=== PATIENT | female | born 1955 | race Caucasian/White ===

== ENCOUNTER 2019-05-04 09:00 | Outpatient (CLI) | payer MEDICARE, SELFPAY ==
--- NOTE | 2019-05-04 09:58 | MR_ITS ---
WS: [id number] MRI BRAIN WITH HIGH-RESOLUTION IMAGING THROUGH THE INTERNAL AUDITORY CANALS WITHOUT AND WITH CONTRAST HISTORY: SENSORINEURAL HEARING LOSS BILATERAL/ TINNITUS BILATERAL COMPARISON: None available. TECHNIQUE: Multiplanar, multisequence imaging is performed through the brain. Additional 3 mm imaging performed in multiple planes through the internal auditory canal. Postcontrast imaging with 17 ml's of Prohance. No acute intracranial hemorrhage, midline shift, edema or mass effect. There are a few scattered T2 and FLAIR signal hyperintensities within the white matter. Appropriate f or the patient's age and related to microvascular disease. No prior infarct. No hemorrhage or mass ef fect. Posterior fossa is negative. Ventricles and extra-axial spaces are normal. No inferior displacement of cerebellar tonsils. Clivus and pituitary gland are normal. Internal and external auditory canals: Unremarkable. Cranial nerves VII and VIII complexes: Unremarkable. No enhancement or mass. Cerebellopontine angles: Normal. Paranasal sinuses: Normal. Mastoid air cells: Normal. Calvarium and scalp: Normal. Visualized [place] and dural venous sinuses demonstrate no abnormality. MR/MR iac's wo/w con* [id number] IMPRESSION: 1. Normal MRI internal auditory canals. No mass. 2. Minimal chronic microvascular ischemic disease.
[2019-05-04 11:10] LABS: Blood Urea Nitrogen 12 mg/dL (8-23)
== END 2019-05-04 09:01 | disposition home or self-care (01) ==
PROVIDERS: Family Provider Family Medicine; PCP Family Medicine; Visit Provider Specialist
DX: H90.3 Sensorineural hearing loss, bilateral (principal); H93.13 Tinnitus, bilateral; R42 Dizziness and giddiness
CPT/HCPCS: 70553; 82565; 84520; A9579

== ENCOUNTER 2019-06-15 10:26 | Outpatient (RCR) | payer MEDICARE, SELFPAY | END 2019-07-05 23:59 | disposition home or self-care (01) | LOC: SPT 10:26 | PROVIDERS: Family Provider Family Medicine; PCP Family Medicine; Referring Provider Specialist; Visit Provider Specialist | DX: R42 Dizziness and giddiness (principal) | CPT/HCPCS: 95992; 97162 ==

== ENCOUNTER 2020-01-03 15:36 | Outpatient (CLI) | payer MEDICARE, SELFPAY ==
--- NOTE | 2020-01-03 15:54 | XR_ITS ---
WS: [id number] SCREENING DEXA SCAN [facility] CLINICAL INFORMATION: ASYMTOMATIC MENOPAUSAL STATE COMPARISON: None. FINDINGS: The L1-L4 bone mineral density measures 1.104 g/cm2. This corresponds to a T score score of -0.6 and Z score of 0.5. Left femoral neck bone mineral density measures 0.893 g/cm2. This corresponds to a T score of -0.9 an d Z score of 0.0. Right femoral neck bone mineral density measures 0.943 g/cm2. This corresponds to a T score -0.5of an d Z score of 0.4. Mean femoral neck bone mineral density measures 0.918 g/cm2. This corresponds to a T score of -0.7 an d Z score of 0.2. XR/XR DEXA axial skeleton* [id number] IMPRESSION: Normal bone mineralization. Patient's FRAX calculated 10 year probability for major osteoporotic fracture i s 14.9 % and osteoporotic hip fracture is 1.8%.
== END 2020-01-03 15:37 | disposition home or self-care (01) ==
LOC: RADWPI 15:46
PROVIDERS: Family Provider Family Medicine; PCP Family Medicine; Visit Provider Family Medicine
DX: Z78.0 Asymptomatic menopausal state (principal)
CPT/HCPCS: 77080

== ENCOUNTER 2020-05-28 14:02 | Outpatient (CLI) | payer MEDICARE, SELFPAY ==
--- NOTE | 2020-05-28 14:08 | MM_ITS ---
WS: [id number] BILATERAL DIGITAL SCREENING MAMMOGRAPHY WITH CAD CLINICAL INFORMATION: SCREENING HISTORY: Screening mammogram. No current complaints. COMPARISON: March 16, 2019 TECHNIQUE: Bilateral CC and MLO views. FINDINGS: Scattered fibroglandular densities bilaterally. No suspicious focal mass, asymmetry, calcifications, or architectural distortion. No evidence of malignancy. Punctate and vascular calcifications. MM/[place] [id number] IMPRESSION: BI-RADS: 2-Benign FOLLOW UP: 1 Year Follow-up Recommend return to annual screening mammography.
== END 2020-05-28 14:03 | disposition home or self-care (01) ==
LOC: RADSHAW 14:05
PROVIDERS: PCP Family Medicine; Visit Provider Family Medicine
DX: Z12.31 Encounter for screening mammogram for malignant neoplasm of breast (principal)
CPT/HCPCS: 77067

== ENCOUNTER → 2020-11-10 11:47 | Outpatient (BNVA) | payer MEDICARE, SELFPAY | PROVIDERS: PCP Family Medicine; Visit Provider Registered Nurse Neonatal Intensive Care | DX: N39.0 Urinary tract infection, site not specified (principal) | CPT/HCPCS: 81000 ==

== ENCOUNTER 2021-08-19 10:36 | Outpatient (CLI) | payer MEDICARE, SELFPAY ==
--- NOTE | 2021-08-19 10:44 | MM_ITS ---
WS: [id number] BILATERAL SCREENING DIGITAL BREAST TOMOSYNTHESIS MAMMOGRAM WITH CAD HISTORY: SCREENING COMPARISON: 05/28/2020 and 03/16/2019 Bilateral CC and MLO views with tomosynthesis and synthetic mammography submitted. Computer aided det ection analyzed. Breast composition: There are scattered areas of fibroglandular density. No suspicious masses, microc alcifications or architectural distortion. Bilateral calcifications in each breast are stable. MM/[place] [id number] IMPRESSION: BI-RADS: 2-Benign FOLLOW UP: 1 Year Follow-up
== END 2021-08-19 10:37 | disposition home or self-care (01) ==
LOC: RAD 10:39
PROVIDERS: PCP Family Medicine; Visit Provider Family Medicine
DX: Z12.31 Encounter for screening mammogram for malignant neoplasm of breast (principal)
CPT/HCPCS: 77063; 77067

== ENCOUNTER 2022-03-18 12:24 | Outpatient (CLI) | payer MEDICARE, SELFPAY ==
--- NOTE | 2022-03-18 12:46 | XR_ITS ---
WS: [id number] DEXA (DUAL ENERGY X-RAY ABSORPTIOMETRY) Bone mineral density was performed using a SingleFeed machine. HISTORY: ASYMPTOMATIC MENOPAUSAL STATE COMPARISON: 01/03/2020 Lumbar spine BMD (L1-L4): 1.144 g/cm2 T score: -0.3 Z score: 0.9 Total hip BMD: Left: 0.687 g/cm2. T score: -2.5 Z score: -1.5 Right: 0.736 g/cm2. T score: -2.2 Z score: -1.1 10 year probability of a major osteoporotic fracture is 25.5%. Compared to the prior study from 01/03/2020. Lumbar spine bone mineral density has increased by 3.6%. Bilateral hips bone mineral density has not changed. XR/XR DEXA axial skeleton* [id number] IMPRESSION: OSTEOPOROSIS based upon the WHO classification for females. Significant increase in bone mineral density within the lumbar spine since the prior study.
== END 2022-03-18 12:25 | disposition home or self-care (01) ==
PROVIDERS: PCP Family Medicine; Visit Provider Family Medicine
DX: Z78.0 Asymptomatic menopausal state (principal); M81.0 Age-related osteoporosis without current pathological fracture
CPT/HCPCS: 77080

== ENCOUNTER 2022-09-29 08:12 | Outpatient (CLI) | payer MEDICARE, SELFPAY ==
--- NOTE | 2022-09-29 08:22 | MM_ITS ---
WS: [id number] BILATERAL SCREENING DIGITAL TOMOSYNTHESIS MAMMOGRAM WITH CAD HISTORY: SCREENING COMPARISON: 08/19/2021 and 05/28/2020 Bilateral CC and MLO views with tomosynthesis and synthetic mammography submitted. Computer aided det ection analyzed. Breast composition: There are scattered areas of fibroglandular density. No suspicious masses, microc alcifications or architectural distortion. Benign calcifications. MM/[place] [id number] IMPRESSION: BI-RADS: 2-Benign FOLLOW UP: 1 Year Follow-up
== END 2022-09-29 08:13 | disposition home or self-care (01) ==
PROVIDERS: PCP Family Medicine; Visit Provider Family Medicine
DX: Z12.31 Encounter for screening mammogram for malignant neoplasm of breast (principal)
CPT/HCPCS: 77063; 77067

== ENCOUNTER 2023-07-12 11:51 | Emergency (ER) | payer MEDICARE, SELFPAY ==
[2023-07-12 11:51] VITALS: BP 129/75; PULSE 56; RESP 18; TEMP 36.8; O2SAT 100; BMI 30.9
--- NOTE | 2023-07-12 11:58 | XRR_ITS ---
PROCEDURE INFORMATION: Exam: XR Left Foot Exam date and time: 07/12/2023 12:02 PM Age: 67 years old Clinical indication: Injury or trauma; Other: Twisted lt foot and ankle; Sprain or strain; Left TECHNIQUE: Imaging protocol: Radiologic exam of the left foot. Views: 3 or more views. COMPARISON: CR XR ankle LT min 3V* [id number] 07/12/2023 12:02 PM FINDINGS: Bones/joints: Nondisplaced 5th metatarsal base fracture (zone 2 Springer fracture) best seen on the lateral view. No dislocation. Mild degenerative change 1st metatarsal phalangeal joint. Mild bunion formation. Small plantar calcaneal enthesophyte. Soft tissues: No significant soft tissue pathology. XR/XR foot LT min 3V* [id number] IMPRESSION: Nondisplaced 5th metatarsal base fracture.
--- NOTE | 2023-07-12 11:58 | XRR_ITS ---
PROCEDURE INFORMATION: Exam: XR Left Ankle Exam date and time: 07/12/2023 12:02 PM Age: 67 years old Clinical indication: Injury or trauma; Other: Twisted lt foot and ankle Thursday; Sprain or strain; Left TECHNIQUE: Imaging protocol: Radiologic exam of the left ankle. Views: 3 or more views. COMPARISON: CR XR foot LT min 3V* [id number] 07/12/2023 12:02 PM FINDINGS: Bones/joints: Small plantar calcaneal enthesophyte. Nondisplaced fracture of the base of the 5th metatarsal. No dislocation. Soft tissues: No significant soft tissue pathology. XR/XR ankle LT min 3V* [id number] IMPRESSION: Nondisplaced 5th metatarsal base fracture.
--- NOTE | 2023-07-12 12:04 | ED_ITS ---
HPI - Extremity Problem General: Chief complaint: Extremity Injury, Lower Stated complaint: left foot pains Time Seen by Provider: 07/12/23 11:58 Source: patient Mode of arrival: ambulatory Limitations: no limitations History of Present Illness: 67-year-old female states she rolled her ankle on Thursday. States she has had a fracture to her fifth metatarsal of past states she has had pain throughout the week and is very tender over that fifth metatarsal. She has been walking on it she is a [place] shoe she states the pain is worse with movement though. Associated symptoms: Deny chest pain, fever(s) or rash Review of Systems Const: Denies: fever(s) or chills ENMT: Denies: throat pain or dental pain Card: Denies: chest pain Resp: Denies: dyspnea GI: Denies: abdominal pain, nausea, vomiting or diarrhea Musc: Reports: extremity pain; Denies: neck pain or back pain Skin/Breast: Denies: rash Neuro: Denies: headache(s) PFSH ED PFSH: Social History Smoking and tobacco/nicotine status: former use of tobacco/nicotine Physical Exam Const: COMMON NORMALS: no acute distress, patient oriented x3 and healthy appearing HENMT: COMMON NORMALS: normocephalic and atraumatic HEAD & SCALP: normocephalic and atraumatic Eye: COMMON NORMALS: conjunctivae normal CONJUNCTIVA: Yes conjunctivae normal Chest: COMMONS NORMALS: normal inspection of the chest Resp: COMMON NORMALS: normal respiratory effort Cardio: COMMON NORMALS: regular rate RATE: regular rate Extremity: COMMON NORMALS: normal to inspection and full ROM NARRATIVE EXTREMITY EXAM: Tenderness noted over fifth metatarsal Neuro: COMMON NORMALS: patient oriented x3, moves all extremities and no focal motor deficits Psych: COMMON NORMALS: mental status grossly normal, Normal thought process present and cooperative THOUGHT PROCESS: Normal thought process present Skin: COMMON NORMALS: no rashes or lesions noted and no wounds GENERAL SKIN EXAM: no rashes or lesions noted Course Vital Signs: Vital signs: Vital Signs Temperature 98.2 F 07/12/23 11:51 Pulse Rate 56 L 07/12/23 11:51 Respiratory Rate 18 07/12/23 11:51 Blood Pressure 129/75 07/12/23 11:51 Pulse Oximetry 100 04/07/24 11:51 Oxygen Delivery Me thod Room Air 07/12/23 11:51 MDM - Extremity (Nontraumatic) Medical Decision Making Patient presents here with nondisplaced fifth metatarsal fracture. She is weight-bear as tolerated did give her crutches we will prescribe her pain meds we will get her follow-up with podiatry she is return if worsening. Lab Data I reviewed the patient's lab results. Radiology Impressions Ankle X-Ray 07/12/23 11:58 IMPRESSION: Nondisplaced 5th metatarsal base fracture. Foot X-Ray 07/12/23 11:58 IMPRESSION: Nondisplaced 5th metatarsal base fracture. All radiology interpretation(s) finalized by discharge Discharge Plan Discharge Patient Disposition: Home Clinical Impression: Fracture of fifth metacarpal bone Qualifiers: Encounter type: initial encounter Fracture type: closed Fracture alignment: nondisplaced Laterality: left Condition: Stable Prescriptions: New hydrocodone-acetaminophen 5-325 mg tablet 1 tab PO Q6H PRN (Reason: pain) Qty: 14 0RF No Action propranolol 40 mg tablet 20 mg PO BID gabapentin 100 mg capsule 100 mg PO BID fluoxetine [Prozac] 20 mg capsule 20 mg PO DAILY famotidine 10 mg Tablet 10 mg PO DAILY PRN (Reason: Acid Reflux) Glucosamine 500 mg Tablet 500 mg PO DAILY Rx Instructions: administer with a meal amoxicillin-pot clavulanate 500-125 mg tablet 1 tab PO TID Calcium 600 + D(3) 600 mg-10 mcg (400 unit) Tablet 1 tab PO DAILY Centrum Silver Women 8 mg iron-400 mcg-50 mcg Tablet 1 tab PO DAILY melatonin 10 mg Capsule 10 mg PO BEDTIME Ocuvite Adult 50 Plus 250 mg (90 mg-160 mg) Capsule 1 cap PO DAILY Discharge Orders: Discharge ED (Routine); Ordered 07/12/23 Ordered By: Fernando Tran Referrals: Maggy Llanos MD [Primary Care Provider] - Levi Smith DPM [Physician] - 1-3 days Discharge Diet: Advance as tolerated Discharge Activity: Increase activity as tolerated Patient Instructions: Foot Fracture in Adults (ED), Opioid Safety Coding Level of Care Code ED Liquified Natural Gas Technician for Melinda Hampton
[2023-07-12] MEDS: HYDROcodone-acetaminophen 5-325 mg Tablet 1 TAB PO (12:07)
--- NOTE | 2023-07-13 07:31 | DCPLANNER ---
A message was sent to podiatry on 07/13/[address] [facility] to contact patient for appt
== END 2023-07-12 13:21 | disposition home or self-care (01) ==
PROVIDERS: Emergency Provider Emergency Medicine; PCP Family Medicine
DX: S62.347A Nondisplaced fracture of base of fifth metacarpal bone, left hand, initial encounter for closed fracture (principal); Z87.891 Personal history of nicotine dependence; X50.1XXA Overexertion from prolonged static or awkward postures, initial encounter
CPT/HCPCS: 73610; 73630; 99283; E0114

== ENCOUNTER 2023-07-15 12:05 | Outpatient (CLI) | payer MEDICARE, SELFPAY | END 2023-07-15 12:06 | disposition home or self-care (01) | LOC: SPT 12:14 | PROVIDERS: PCP Family Medicine; Visit Provider Podiatrist Foot & Ankle Surgery | DX: Z46.89 Encounter for fitting and adjustment of other specified devices (principal); S92.355A Nondisplaced fracture of fifth metatarsal bone, left foot, initial encounter for closed fracture; W19.XXXA Unspecified fall, initial encounter | CPT/HCPCS: 99204 ==

== ENCOUNTER → 2023-07-30 07:46 | Outpatient (BNVA) | payer MEDICARE, SELFPAY | PROVIDERS: PCP Family Medicine; Visit Provider Podiatrist Foot & Ankle Surgery | DX: S99.192D Other physeal fracture of left metatarsal, subsequent encounter for fracture with routine healing (principal); X58.XXXD Exposure to other specified factors, subsequent encounter | CPT/HCPCS: 73630; 99213 ==

== ENCOUNTER → 2023-08-20 07:37 | Outpatient (BNVA) | payer MEDICARE, OTHER, SELFPAY | PROVIDERS: PCP Family Medicine; Visit Provider Podiatrist Foot & Ankle Surgery | DX: S99.192D Other physeal fracture of left metatarsal, subsequent encounter for fracture with routine healing; X58.XXXD Exposure to other specified factors, subsequent encounter | CPT/HCPCS: 73630; 99213 ==

== ENCOUNTER → 2023-09-16 07:15 | Outpatient (BNVA) | payer MEDICARE, OTHER, SELFPAY | PROVIDERS: PCP Family Medicine; Visit Provider Podiatrist Foot & Ankle Surgery | DX: S99.192D Other physeal fracture of left metatarsal, subsequent encounter for fracture with routine healing; X58.XXXD Exposure to other specified factors, subsequent encounter | CPT/HCPCS: 73630; 99213 ==

== ENCOUNTER 2024-05-16 13:40 | Outpatient (CLI) | payer MEDICARE, OTHER, SELFPAY ==
--- NOTE | 2024-05-16 13:44 | MM_ITS ---
WS: [id number] BILATERAL 3D TOMOSYNTHESIS DIGITAL SCREENING MAMMOGRAPHY WITH CAD CLINICAL INFORMATION: SCREENING HISTORY: Screening mammogram. No current complaints. COMPARISON: 2022 TECHNIQUE: Bilateral CC and MLO views. FINDINGS: Scattered fibroglandular densities bilaterally. No suspicious focal mass, asymmetry, calcifications, or architectural distortion. No evidence of malignancy. Bilateral benign calcifications. Vascular calcification. MM/MM scr tomosynthesis [id number] IMPRESSION: DENSITY: There are scattered areas of fibroglandular density. BI-RADS: 2 - Benign. FOLLOW UP: 1 Year Follow-up Recommend return to annual screening mammography.
== END 2024-05-16 13:41 | disposition home or self-care (01) ==
LOC: RAD 13:41
PROVIDERS: PCP Family Medicine; Visit Provider Family Medicine
DX: Z12.31 Encounter for screening mammogram for malignant neoplasm of breast (principal); R92.323 Mammographic fibroglandular density, bilateral breasts; R92.1 Mammographic calcification found on diagnostic imaging of breast
CPT/HCPCS: 77063; 77067

== ENCOUNTER 2024-06-30 13:10 | Outpatient (CLI) | payer MEDICARE, OTHER, SELFPAY ==
--- NOTE | 2024-06-30 13:15 | XR_ITS ---
WS: [id number] SCREENING DEXA SCAN [facility] CLINICAL INFORMATION: POSTMENOPAUSAL COMPARISON: 2021 FINDINGS: The L1-L4 bone mineral density measures 1.141 g/cm2. This corresponds to a T score score of -0.3 and Z score of 0.9. Left femoral neck bone mineral density measures 0.891 g/cm2. This corresponds to a T score of -0.9 and Z score of 0.2. Right femoral neck bone mineral density measures 0.903 g/cm2. This corresponds to a T score -0.8of and Z score of 0.3. Mean femoral neck bone mineral density measures 0.897 g/cm2. This corresponds to a T score of -0.9 and Z score of 0.3. XR/XR DEXA axial skeleton* [id number] IMPRESSION: Normal bone mineralization lumbar spine. Normal bone mineralization femoral nec ks. Patient's FRAX calculated 10 year probability for major osteoporotic fracture i s 15.8% and osteoporotic hip fracture is 2.4%. Bone mineral density lumbar spine decreased -0.3% Bone mineral density femoral necks increased 26.0%
== END 2024-06-30 13:11 | disposition home or self-care (01) ==
LOC: RAD 13:11
PROVIDERS: PCP Family Medicine; Visit Provider Family Medicine
DX: Z78.0 Asymptomatic menopausal state (principal)
CPT/HCPCS: 77080

== ENCOUNTER → 2025-02-17 10:54 | Outpatient (BNVA) | payer MEDICARE, OTHER, SELFPAY | PROVIDERS: PCP Family Medicine; Visit Provider Emergency Medicine | DX: N39.0 Urinary tract infection, site not specified (principal); R50.9 Fever, unspecified | CPT/HCPCS: 81000; 87400; 87426 ==

== ENCOUNTER 2025-02-18 23:08 | Emergency (ER) | payer MEDICARE, OTHER, SELFPAY ==
--- OUTSIDE RECORDS SUMMARY | 2025-02-18 23:16 | XMS_ITS | Encounter Summary ---
Author Organization [facility] Address [address] [place] [address] Care Team Providers Care Oil Pipe Inspector Helper Name Role Phone Unavailable Primary Care Provider Unavailabl e Encounter Details Date Type Department Care Team (Latest Contact Info) Description 01/15/1999 Outpatient Historical [facility] Titus Bejarano MD NO ADDRESS ON FILE Abdominal or pelvic swelling, mass, or lump, right upper quadrant (Primary Dx) Social History Tobacco Use Types Packs/Day Years Used Date Smoking Tobacco: Never Assessed Comments Unknown Sex and Gender Information Value Date Recorded Sex Assigned at Not on file 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
--- OUTSIDE RECORDS SUMMARY | 2025-02-18 23:16 | XMS_ITS | Encounter Summary ---
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
--- OUTSIDE RECORDS SUMMARY | 2025-02-18 23:16 | XMS_ITS | Clinical Summary ---
Author Organization [facility] Address [address] 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
--- OUTSIDE RECORDS SUMMARY | 2025-02-18 23:16 | XMS_ITS | Encounter Summary ---
Author Organization 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
[2025-02-18 23:22] VITALS: BP 99/57; PULSE 79; RESP 18; TEMP 37.1; O2SAT 95; BMI 28.6
[2025-02-19 01:06] LABS: Hematocrit 39.7 % (36-47); Hemoglobin 13.30 g/dL (11.27-16.99); Mean Corpuscular HGB Conc 33.5 g/dL (30-55); Mean Corpuscular Hemoglobin 29.5 pg (27-33); Mean Corpuscular Volume 88.0 fl (85-98); Nucleated Red Blood Cells % 0 %; Platelet Count 288 10^3/cmm (157-399); Red Blood Count 4.51 10^6/uL (3.85-5.65); White Blood Count 10.69 10^3/uL (3.29-11.43)
[2025-02-19 01:06] LABS: Glucose Urine UA Negative (Normal); Nitrate Urine Negative (Negative); Specific Gravity, Urine 1.015 (1.005-1.030)
[2025-02-19 01:11] LABS: Add Urine Microscopic? YES
--- NOTE | 2025-02-19 01:14 | CTR_ITS ---
PROCEDURE INFORMATION: Exam: CT Abdomen And Pelvis With Contrast Exam date and time: 02/19/2025 1:43 AM Age: 69 years old Clinical indication: Nausea and vomiting; Abdominal pain; Localized; Left lower quadrant (llq); Prior surgery; Surgery date: 6+ months; Surgery type: Gb. Hysterectomy. Bladder sling; Llq pain with n/v TECHNIQUE: Imaging protocol: Computed tomography of the abdomen and pelvis with contrast. Radiation optimization: All CT scans at this facility use at least one of these dose optimization techniques: automated exposure control; mA and/or kV adjustment per patient size (includes targeted exams where dose is matched to clinical indication); or iterative reconstruction. Contrast material: OMNI 350; Contrast volume: 100 ml; Contrast route: INTRAVENOUS (IV); COMPARISON: No relevant prior studies available. RADIATION DOSE METRICS: Total DLP (mGy-cm): 826.59 FINDINGS: Liver: Hepatic steatosis. Gallbladder and biliary ducts: Cholecystectomy. Pancreas: Normal. No ductal dilation. Spleen: Normal. No splenomegaly. Adrenal glands: Normal. No mass. Kidneys and ureters: No hydronephrosis or delayed nephrogram. Stomach and bowel: Diverticulosis, without acute diverticulitis. No small bowel obstruction. No free air. Appendix: No evidence of appendicitis. Intraperitoneal space: See Stomach and bowel finding. Vasculature: Atherosclerotic changes of the aorta. Lymph nodes: Unremarkable. No enlarged lymph nodes. Urinary bladder: Unremarkable as visualized. Reproductive: Hysterectomy. Bones/joints: Degenerative changes of the spine. Soft tissues: Unremarkable. CT/CT abdomen pelvis w con* [id number] IMPRESSION: 1. Hysterectomy. 2. Diverticulosis, without acute diverticulitis. No small bowel obstruction. No free air. 3. Hepatic steatosis. 4. Cholecystectomy. 5. No hydronephrosis or delayed nephrogram.
[2025-02-19 01:16] LABS: Lactic Sepsis W/Reflex 1.0 mmol/L (0.5-2.2)
[2025-02-19 01:17] LABS: Alanine Aminotransferase 14 U/L (0-33); Albumin Level 3.8 g/dL (3.5-5.2); Alkaline Phosphatase 91 U/L (35-105); Anion Gap 15.7 (5-19); Aspartate Amino Transferase 16 U/L (0-32); Blood Urea Nitrogen 13 mg/dL (8-23); Calcium 9.1 mg/dL (8.5-10.5); Carbon Dioxide 24 mmol/L (22-29); Chloride 100 mmol/L (98-107); Globulin 3.7 g/dL (1.3-4.6); Glucose 125 mg/dL (65-115); Lipase 19 U/L (13-60); Osmolality Calculated 284 mOsm/kg (285-295); Potassium 3.7 mmol/L (3.5-5.1); Sodium 136 mmol/L (136-145); Total Protein 7.5 g/dL (6.6-8.7)
[2025-02-19] MEDS: iohexol 350 mg/mL 500 mL Btl (per mL) IV (01:43)
[2025-02-19] MEDS: ondansetron 2 mg/ML SDV 2 mL 4 MG IVP (01:44)
--- NOTE | 2025-02-19 01:55 | W.ED.ABDPA2 ---
HPI - Abdominal Pain General: Chief Complaint: Abdominal Pain Stated Complaint: UC said had kidney infection on Thur,not better Time Seen by Provider: 02/19/25 01:07 History of Present Illness: Patient is a 69-year-old female who presents with complaints of a kidney infection and diverticulitis. She reports being seen at urgent care a couple of days ago where she was diagnosed with a urinary tract infection described as 'bad' based on urinalysis. She was prescribed antibiotics including Flagyl (metronidazole) and another antibiotic that she cannot recall the name of. The patient reports current symptoms of vomiting today and chills. She denies diarrhea. She reports back pain but denies dysuria. Earlier today, she experienced severe chills after showering, with uncontrollable shaking followed by vomiting. She reports a mild cough. Related Data Home Medications ?Medication ?Instructions ?Recorded ?Confirmed fluoxetine 20 mg capsule (Prozac) 20 mg PO DAILY 11/10/20 02/17/25 gabapentin 100 mg capsule 100 mg PO BID 11/10/20 02/17/25 propranolol 40 mg tablet 20 mg PO BID 11/10/20 02/17/25 calcium 600 mg (as 1 tab PO DAILY 07/12/23 02/17/25 carbonate)-vitamin D3 10 mcg (400 unit) tablet (Calcium 600 + D(3)) famotidine 10 mg tablet 10 mg PO DAILY PRN Acid Reflux 07/12/23 02/17/25 glucosamine sulfate 500 mg tablet 500 mg PO DAILY 07/12/23 02/17/25 (Glucosamine) melatonin 10 mg capsule 10 mg PO BEDTIME 07/12/23 02/17/25 pjucexlp-mze- 250 mg-dha 90 1 cap PO DAILY 07/12/23 02/17/25 mg-epa 160 jb-scgr-qiwg-zeax capsule (Ocuvite Adult 50 Plus) gptqxaoa-ecll-ecoj 8 mg-folic 400 1 tab PO DAILY 07/12/23 02/17/25 mcg-K 50 mcg-lutein 300 mcg tablet (Centrum Silver Women) Previous Rx's ?Medication ?Instructions ?Recorded [facility]ALK[facility] #1 ea 07/15/23 levofloxacin 750 mg tablet 750 mg PO DAILY 7 days #7 tabs 02/17/25 metronidazole 500 mg tablet 500 mg PO Q8H 7 days #21 tabs 02/17/25 ondansetron 4 mg disintegrating 4 mg PO Q6H PRN nausea and 02/19/25 tablet vomiting #14 tabs Allergies Allergy/AdvReac Type Severity Reaction Status Date / Time ketorolac (From Toradol) Allergy ADR-Nausea Verified 02/17/25 10:15 meperidine (From Demerol) Allergy nausea Verified 02/17/25 10:15 PFSH ED PFSH: Social History Smoking and tobacco/nicotine status: never used tobacco/nicotine Physical Exam Const: COMMON NORMALS: no acute distress GENERAL APPEARANCE: cooperative; not ill appearing and not frail appearing HENMT: COMMON NORMALS: normocephalic, atraumatic and Normal external nose present HEAD & SCALP: normocephalic and atraumatic FACE & SINUS: normal facial exam and face symmetric NOSE: Normal external nose present Eye: COMMON NORMALS: Equal, round and reactive pupils present and EOMs intact bilaterally PUPIL: Yes Equal, round and reactive pupils present Neck/C-Spine: GENERAL: Yes trachea midline Chest: CHEST: Yes Symmetrical chest wall rise Resp: COMMON NORMALS: normal respiratory effort, No retractions, No use of accessory muscles and clear to auscultation bilaterally AUSCULTATION: clear to auscultation bilaterally Cardio: COMMON NORMALS: regular rate and regular rhythm RATE: regular rate RHYTHM: regular rhythm GI: COMMON NORMALS: Normal to inspection, nondistended, normoactive bowel sounds present OTHER: minimal tenderness Extremity: COMMON NORMALS: no pedal edema Neuro: DOMINGO COMA SCALE: document GCS findings Domingo coma scale eye opening: Spontaneous Domingo coma scale verbal response: Orientated Domingo coma scale motor response: Obey commands Roach coma scale total score: 15 SENSORY EXAM: Yes extremities (intact) Psych: COMMON NORMALS: speech normal SPEECH: Yes normal speech Skin: COMMON NORMALS: no rashes or lesions noted GENERAL SKIN EXAM: no rashes or lesions noted Course Vital Signs: Vital signs: Vital Signs Temperature 98.7 F 02/18/25 23:22 Pulse Rate 80 02/19/25 03:01 Respiratory Rate 18 02/18/25 23:22 Blood Pressure 115/62 02/19/25 03:01 Pulse Oximetry 99 02/19/25 03:01 Oxygen Delivery Me thod Room Air 02/18/25 23:22 MDM - Abdominal Pain Medical Decision Making The patient's vitals are stable here. She has minimal tenderness. Her CBC is normal. Her BNP is not remarkable. Liver enzymes are normal. Lactic Acid is 1.0. However, her CRP is significantly elevated at 274. Urinalysis does not show signs of urinary tract infection. There is trace blood. CT of the abdomen and pelvis shows diverticulosis without diverticulitis. Note genitourinary causes are seen by CT. We will have her continue her antibiotics given her elevated CRP. Zofran for nausea. Plenty of liquids. She does feel improved after IV fluid bolus here. Close outpatient follow up. Return for new or worsening symptoms. Lab Data 02/19/25 00:49 02/19/25 00:49 Labs/Radiology: Radiology Impressions Abdomen/Pelvis CT 02/19/25 01:14 IMPRESSION: 1. Hysterectomy. 2. Diverticulosis, without acute diverticulitis. No small bowel obstruction. No free air. 3. Hepatic steatosis. 4. Cholecystectomy. 5. No hydronephrosis or delayed nephrogram. Laboratory Results WBC 10.69 10^3/uL (3.29-11.43) 02/19/25 00:49 RBC 4.51 10^6/uL (3.85-5.65) 02/19/25 00:49 Hgb 13.30 g/dL (11.27-16.99) 02/19/25 00:49 Hct 39.7 % (36-47) 02/19/25 00:49 MCV 88.0 fl (85-98) 02/19/25 00:49 MCH 29.5 pg (27-33) 02/19/25 00:49 MCHC 33.5 g/dL (30-55) 02/19/25 00:49 RDW 11.9 % (12.1-15.1) L 02/19/25 00:49 Plt Count 288 10^3/cmm (157-399) 02/19/25 00:49 MPV 8.5 fL (7.4-10.4) 02/19/25 00:49 Neut % (Auto) 86.6 % 02/19/25 00:49 Lymph % (Auto) 5.6 % 02/19/25 00:49 Lucas % (Auto) 6.8 % 02/19/25 00:49 Eos % (Auto) 0.1 % 02/19/25 00:49 Baso % (Auto) 0.5 % 02/19/25 00:49 Neut # (Auto) 9.26 10^3/uL (1.8-7.7) H 02/19/25 00:49 Lymph # (Auto) 0.6 10^3/uL (0.8-4.8) L 02/19/25 00:49 Lucas # (Auto) 0.7 10^3/uL (0.2-0.9) 02/19/25 00:49 Eos # (Auto) 0.0 10^3/uL (0.0-0.8) 02/19/25 00:49 Baso # (Auto) 0.1 10^3/uL (0.0-0.1) 02/19/25 00:49 Nucleated RBC % (auto) 0 % 02/19/25 00:49 Nucleated RBCs # 0.0 /100WBC 02/19/25 00:49 Sodium 136 mmol/L (136-145) 02/19/25 00:49 Potassium 3.7 mmol/L (3.5-5.1) 02/19/25 00:49 Chloride 100 mmol/L (98-107) 02/19/25 00:49 Carbon Dioxide 24 mmol/L (22-29) 02/19/25 00:49 Anion Gap 15.7 (5-19) 02/19/25 00:49 BUN 13 mg/dL (8-23) 02/19/25 00:49 Creatinine 0.9 mg/dL (0.5-0.9) 02/19/25 00:49 GFR Calculation Not Reportable 02/19/25 00:49 Glucose 125 mg/dL (65-115) H 02/19/25 00:49 Calculated Osmolality 284 mOsm/kg (285-295) L 02/19/25 00:49 Lactic Acid 1.0 mmol/L (0.5-2.2) 02/19/25 00:49 Calcium 9.1 mg/dL (8.5-10.5) 02/19/25 00:49 Total Bilirubin 0.4 mg/dL (0.15-1.2) 02/19/25 00:49 AST 16 U/L (0-32) 02/19/25 00:49 ALT 14 U/L (0-33) 02/19/25 00:49 Alkaline Phosphatase 91 U/L (35-105) 02/19/25 00:49 C-Reactive Protein 274.3 mg/L (0.0-4.9) H 02/19/25 00:49 Total Protein 7.5 g/dL (6.6-8.7) 02/19/25 00:49 Albumin 3.8 g/dL (3.5-5.2) 02/19/25 00:49 Globulin 3.7 g/dL (1.3-4.6) 02/19/25 00:49 Lipase 19 U/L (13-60) 02/19/25 00:49 Urine Color Yellow (Yellow) 02/19/25 00:40 Urine Appearance Clear (CLEAR) 02/19/25 00:40 Urine pH 5.5 (5-7) 02/19/25 00:40 Ur Specific [place] 1.015 (1.005-1.030) 02/19/25 00:40 Urine Protein 1+ (Negative) A 02/19/25 00:40 Urine Glucose (UA) Negative (Normal) 02/19/25 00:40 Urine Ketones 2+ (Negative) H 02/19/25 00:40 Urine Blood Negative (Negative) 02/19/25 00:40 Urine Nitrate Negative (Negative) 02/19/25 00:40 Urine Bilirubin Negative (Negative) 02/19/25 00:40 Urine Urobilinogen 1.0 mg/dL (Negative) 02/19/25 00:40 Ur Leukocyte Esterase Trace (Negative) A 02/19/25 00:40 Urine RBC 3-5 /hpf (0-2) 02/19/25 00:40 Urine WBC 6-10 /hpf (0-5) 02/19/25 00:40 Ur Squamous Epith Cells 0-5 /hpf (0-5) 02/19/25 00:40 Amorphous Sediment Not Reportable 02/19/25 00:40 Urine Bacteria None seen /hpf (NONE) 02/19/25 00:40 Hyaline Casts 0.40 /lpf 02/19/25 00:40 All radiology interpretation(s) finalized by discharge Discharge Plan Discharge Patient Disposition: Home Clinical Impression: Vomiting Condition: Stable Prescriptions: New ondansetron 4 mg tablet,disintegrating 4 mg PO Q6H PRN (Reason: nausea and vomiting) Qty: 14 0RF No Action propranolol 40 mg tablet 20 mg PO BID gabapentin 100 mg capsule 100 mg PO BID fluoxetine [Prozac] 20 mg capsule 20 mg PO DAILY (DME) CLAY TAYLOR See Rx Instructions .ROUTE .MEDSUPPLY Qty: 1 0RF Rx Instructions: As directed metronidazole 500 mg tablet 500 mg PO Q8H 7 Days Qty: 21 0RF levofloxacin 750 mg tablet 750 mg PO DAILY 7 Days Qty: 7 0RF famotidine 10 mg Tablet 10 mg PO DAILY PRN (Reason: Acid Reflux) Glucosamine 500 mg Tablet 500 mg PO DAILY Rx Instructions: administer with a meal Calcium 600 + D(3) 600 mg-10 mcg (400 unit) Tablet 1 tab PO DAILY Centrum Silver Women 8 mg iron-400 mcg-50 mcg Tablet 1 tab PO DAILY melatonin 10 mg Capsule 10 mg PO BEDTIME Ocuvite Adult 50 Plus 250 mg (90 mg-160 mg) Capsule 1 cap PO DAILY Discharge Orders: Discharge ED (Routine); Ordered 02/19/25 Ordered By: Hung Lazo Referrals: Maggy Llanos MD [Primary Care Provider, Family Practice] Patient Instructions: Abdominal Pain (ED), Opioid Safety, Pain Management, Patient Portal & Nely Instructions Activity Restrictions/Additional Instructions: Your lab work indicated that your CRP is elevated significantly. This may be from previous urinary tract infection although your other blood work looks reassuring, as well as your urinalysis. CAT scan did not find any acute problems. Return for fever, vomiting liquids despite treatment, worsening pain despite antibiotics, any other concerning symptoms. Take nausea medication scheduled for the next 24 hours, then as needed. Call your doctor's tomorrow for a follow-up appointment and/or a blood redraw later this week to ensure that your inflammatory markers are improving. Print Language: Nauruan Coding Level of Care Code ED Puffer Tender for Melinda Hampton
[2025-02-19 01:58] VITALS: BP 121/55; PULSE 70; O2SAT 93
[2025-02-19 03:01] VITALS: BP 115/62; PULSE 80; O2SAT 99
== END 2025-02-19 03:03 | disposition home or self-care (01) ==
PROVIDERS: Emergency Provider Emergency Medicine; PCP Family Medicine
DX: R11.10 Vomiting, unspecified (principal)
CPT/HCPCS: 36415; 74177; 80053; 81001; 83605; 83690; 85025; 86140; 96361; 96374; 99285; J2405; J7030